=== PATIENT | female | born 1945 | race Caucasian/White ===

== ENCOUNTER 2020-05-22 13:07 | Inpatient (IN) | payer MEDICARE ==
[~2020-05-22] VITALS: Ht 157.5 cm; Wt 68.6 kg
[2020-05-22] MEDS ORDERED: ONDANSETRON HCL 4 MG/2 ML VIAL IV ONE (13:30)
[2020-05-22] MEDS ORDERED: MORPHINE SULF INJ 2 MG/ML SYRINGE 1ML IV ONE (13:30)
[2020-05-22 13:59] LABS: Basophils # (auto) 0 10 ^3/uL (0-0.2); Basophils % (auto) 0.5 % (0.0-2.0); Eosinophils # (auto) 0.2 10 ^3/uL (0-0.8); Eosinophils % (auto) 2.1 % (0.0-7.0); Hemoglobin 14.2 g/dL (12.2-16.2); Lymphocytes # (auto) 2.6 10 ^3/uL (0.4-5.4); Lymphocytes % (auto) 35.2 % (10.0-50.0); Mean Corpuscular Hemoglobin 31.1 pg (28.0-32.0); Mean Corpuscular Hgb Conc. 34.6 g/dL (32.0-36.0); Mean Corpuscular Volume 89.7 fL (80.0-100.0); Monocytes # (auto) 0.4 10 ^3/uL (0-1.3); Neutrophils # (auto) 4.1 10 ^3/uL (1.6-8.6); Neutrophils % (auto) 56.2 % (37.0-80.0); Platelet Count (auto) 286 10^3/uL (140-450); Red Blood Cells 4.57 10^6/uL (4.0-5.20); Red Cell Distribution Width 13.8 % (11.8-14.3); White Blood Cell 7.3 10^3/uL (4.4-10.8)
[2020-05-22 14:13] LABS: Albumin 4.3 g/dL (3.4-5.0); BUN/Creatinine Ratio 26.7; Calcium 8.3 mg/dL (8.5-10.1); Potassium 3.9 mmol/L (3.5-5.1)
[2020-05-22 14:14] LABS: INR 1.03 (0.9-1.15); Partial Thromboplastin Time 26.3 sec (23.0-31.2)
[2020-05-22 14:18] LABS: Bilirubin, Total 0.9 mg/dL (0.2-1.0); Total Protein 7.4 g/dL (6.4-8.2)
[2020-05-22] MEDS ORDERED: traMADol HCL 50 MG TAB PO PRN (15:15)
[2020-05-22] MEDS ORDERED: LACTULOSE 20Gm/30ML SOLN PO PRN (15:15)
[2020-05-22] MEDS ORDERED: TEMAZEPAM 15 MG CAP PO PRN (15:15)
[2020-05-22] MEDS ORDERED: ACETAMINOPHEN 500 MG TAB PO PRN (15:15)
[2020-05-22] MEDS ORDERED: NITROGLYCERIN 0.4 MG SL TAB SL PRN (15:15)
[2020-05-22] MEDS ORDERED: MORPHINE SULF INJ 2 MG/ML SYRINGE 1ML IV PRN (15:15)
[2020-05-22 16:26] VITALS: BP 131/77
[2020-05-22 17:00] VITALS: BP 110/58
[2020-05-22] MEDS ORDERED: FLUT100I IN (17:11)
[2020-05-22] MEDS ORDERED: TAMS0.4C36 PO (17:11)
[2020-05-22] MEDS ORDERED: SIMV-8 PO (17:11)
[2020-05-22] MEDS ORDERED: GABA-339 PO (17:11)
[2020-05-22] MEDS ORDERED: OXYC325T14 PO (17:11)
[2020-05-22] MEDS ORDERED: METO25TA93 PO (17:11)
[2020-05-22] MEDS ORDERED: EZET10TA22 PO (17:11)
[2020-05-22] MEDS ORDERED: FURO20TA3 PO (17:11)
[2020-05-22] MEDS ORDERED: ASPI-498 PO (17:11)
[2020-05-22] MEDS ORDERED: NITR0.4S29 SL (17:11)
[2020-05-22] MEDS ORDERED: ROPI-24 PO (17:11)
[2020-05-22] MEDS ORDERED: ESCI10TA53 PO (17:11)
[2020-05-22] MEDS ORDERED: DIPH25CA66 PO (17:34)
[2020-05-22] MEDS: SODIUM CHLORIDE 0.9% 1,000 ML IV SCH (18:34)
[2020-05-22] MEDS: MORPHINE SULF INJ 2 MG/ML SYRINGE 1ML IV PRN (20:07)
[2020-05-22] MEDS: ATORVASTATIN 20 MG TAB PO SCH (21:51)
[2020-05-22] MEDS: ROPINIROLE 1MG TABLET PO SCH (21:51)
[2020-05-22] MEDS: METOPROLOL TARTRATE 25 MG TAB PO SCH (21:52)
[2020-05-22 22:00] VITALS: BP 131/82
[2020-05-23] MEDS: MORPHINE SULF INJ 2 MG/ML SYRINGE 1ML IV PRN ×5 (00:30→20:38)
[2020-05-23 01:33] LABS: Alcohol, Urine < 3.0 mg/dL (0-10); Amphetamine Screen, Urine NEGATIVE (NEGATIVE); Barbiturate Scree,Urine NEGATIVE (NEGATIVE); Benzodiazephine Screen, Urine NEGATIVE (NEGATIVE); Cannabinoid Screen, Urine NEGATIVE (NEGATIVE); Cocaine Screen, Urine NEGATIVE (NEGATIVE); Opiate Scree,Urine POSITIVE (NEGATIVE); Phencyclidine Screen, Urine NEGATIVE (NEGATIVE)
[2020-05-23] MEDS: SODIUM CHLORIDE 0.9% 1,000 ML IV SCH ×2 (04:29→16:01)
[2020-05-23 05:00] VITALS: BP 111/64
[2020-05-23 06:29] LABS: Magnesium 2.4 mg/dL (1.6-2.6)
[2020-05-23 08:35] VITALS: BP 110/74
[2020-05-23] MEDS: ASPirin 81 mg TAB PO SCH (09:53)
[2020-05-23] MEDS: ROPINIROLE 1MG TABLET PO SCH ×2 (09:53→21:11)
[2020-05-23] MEDS: ENOXAPARIN SOD 40 MG/0.4 ML SYRINGE SC SCH (09:54)
[2020-05-23] MEDS: METOPROLOL TARTRATE 25 MG TAB PO SCH ×2 (09:54→21:12)
[2020-05-23] MEDS: NITROGLYCERIN 0.2MG/HR TOPICAL PATCH TD SCH (09:55)
[2020-05-23 12:53] VITALS: BP 102/54
[2020-05-23 16:21] VITALS: BP 99/58
[2020-05-23] MEDS: ATORVASTATIN 20 MG TAB PO SCH (21:12)
[2020-05-23 22:00] VITALS: BP 120/71
[2020-05-24] MEDS: MORPHINE SULF INJ 2 MG/ML SYRINGE 1ML IV PRN ×5 (00:50→22:10)
[2020-05-24 05:00] VITALS: BP 136/75
[2020-05-24] MEDS: SODIUM CHLORIDE 0.9% 1,000 ML IV SCH ×2 (07:54→22:37)
[2020-05-24 08:00] VITALS: BP 128/72
[2020-05-24] MEDS: ROPINIROLE 1MG TABLET PO SCH ×2 (09:47→22:37)
[2020-05-24] MEDS: ENOXAPARIN SOD 40 MG/0.4 ML SYRINGE SC SCH (09:48)
[2020-05-24] MEDS: NITROGLYCERIN 0.2MG/HR TOPICAL PATCH TD SCH (09:48)
[2020-05-24] MEDS: ASPirin 81 mg TAB PO SCH (09:48)
[2020-05-24] MEDS: METOPROLOL TARTRATE 25 MG TAB PO SCH ×2 (09:48→22:37)
[2020-05-24 12:00] VITALS: BP 105/62
[2020-05-24] MEDS: OXYCODONE W/ ACETAMINOPHEN 5/325MG TABLET PO PRN (13:13)
[2020-05-24 16:56] VITALS: BP 120/67
[2020-05-24] MEDS: ATORVASTATIN 20 MG TAB PO SCH (22:00)
[2020-05-24] MEDS: PROMETHAZINE HCL 25 MG/ML 1ML IV PRN (22:10)
[2020-05-24 22:23] VITALS: BP 139/70
[2020-05-25 05:11] VITALS: BP 141/74
[2020-05-25] MEDS: PROMETHAZINE HCL 25 MG/ML 1ML IV PRN (05:22)
[2020-05-25] MEDS: MORPHINE SULF INJ 2 MG/ML SYRINGE 1ML IV PRN (05:22)
[2020-05-25] MEDS ORDERED: ADENOSINE 57 MG in GIVE UN-DILUTED 0 ML IV STA (08:07)
[2020-05-25 09:00] VITALS: BP 143/78
[2020-05-25] MEDS: OXYCODONE W/ ACETAMINOPHEN 5/325MG TABLET PO PRN ×3 (09:07→21:57)
[2020-05-25] MEDS: ROPINIROLE 1MG TABLET PO SCH ×2 (09:07→21:57)
[2020-05-25] MEDS: ENOXAPARIN SOD 40 MG/0.4 ML SYRINGE SC SCH (10:00)
[2020-05-25] MEDS: NITROGLYCERIN 0.2MG/HR TOPICAL PATCH TD SCH (10:00)
[2020-05-25 10:30] VITALS: BP 156/68
[2020-05-25] MEDS: ASPirin 81 mg TAB PO SCH (12:40)
[2020-05-25] MEDS: SODIUM CHLORIDE 0.9% 1,000 ML IV SCH ×2 (12:40→23:09)
[2020-05-25] MEDS: METOPROLOL TARTRATE 25 MG TAB PO SCH ×2 (12:41→21:58)
[2020-05-25 13:00] VITALS: BP 142/77
[2020-05-25 17:00] VITALS: BP 132/76
[2020-05-25] MEDS: ATORVASTATIN 20 MG TAB PO SCH (21:56)
[2020-05-25 22:00] VITALS: BP 151/90
[2020-05-26] MEDS: MORPHINE SULF INJ 2 MG/ML SYRINGE 1ML IV PRN ×2 (01:54→09:08)
[2020-05-26] MEDS: PROMETHAZINE HCL 25 MG/ML 1ML IV PRN ×2 (01:54→09:16)
[2020-05-26] MEDS: OXYCODONE W/ ACETAMINOPHEN 5/325MG TABLET PO PRN (04:54)
[2020-05-26 05:00] VITALS: BP 133/74
[2020-05-26 08:00] VITALS: BP 143/77
[2020-05-26 08:37] VITALS: BP 143/77
[2020-05-26] MEDS: METOPROLOL TARTRATE 25 MG TAB PO SCH (10:00)
[2020-05-26] MEDS: ASPirin 81 mg TAB PO SCH (10:51)
[2020-05-26] MEDS: ROPINIROLE 1MG TABLET PO SCH (10:52)
[2020-05-26] MEDS: ENOXAPARIN SOD 40 MG/0.4 ML SYRINGE SC SCH (10:53)
[2020-05-26] MEDS: NITROGLYCERIN 0.2MG/HR TOPICAL PATCH TD SCH (10:54)
[2020-05-26] MEDS: SODIUM CHLORIDE 0.9% 1,000 ML IV SCH (12:29)
[2020-05-26 13:00] VITALS: BP 113/67
[2020-05-26 13:18] VITALS: BP 143/77
== END 2020-05-26 15:30 | disposition home or self-care (01) | DRG 303 ==
LOC: EDBD 13:07 → ER 13:07 → TELE 13:08 → TELE-WESTW 15:55
PROVIDERS: ADMIT Internal Medicine; ATTEND Family Medicine
DX: I25.10 Atherosclerotic heart disease of native coronary artery without angina pectoris (principal); E78.5 Hyperlipidemia, unspecified; E21.3 Hyperparathyroidism, unspecified; N20.0 Calculus of kidney; I48.0 Paroxysmal atrial fibrillation; Z86.73 Personal history of transient ischemic attack (TIA), and cerebral infarction without residual deficits; M54.9 Dorsalgia, unspecified; Z87.442 Personal history of urinary calculi; G89.4 Chronic pain syndrome; I10 Essential (primary) hypertension; Z82.3 Family history of stroke; Z90.711 Acquired absence of uterus with remaining cervical stump; Z88.5 Allergy status to narcotic agent; Z88.1 Allergy status to other antibiotic agents
CPT/HCPCS: 36415; 71045; 74176; 78452; 80053; 80061; 80307; 82550; 83735; 83880; 84443; 84484; 85025; 85379; 85610; 85652; 85730; 93017; 93306; 96374; 96375; G0378; J0153; J2405